=== PATIENT | female | born 1975 | race Caucasian/White ===

== ENCOUNTER 2018-10-23 23:30 | Emergency (ER) | payer SELFPAY, OTHER ==
[2018-10-24] MEDS: ACETAMINOPHEN 325 MG TAB PO (02:03)
== END 2018-10-24 03:10 | disposition home or self-care (01) ==
LOC: FTE 23:30
DX: S00.01XA Abrasion of scalp, initial encounter (principal); W01.198A Fall on same level from slipping, tripping and stumbling with subsequent striking against other object, initial encounter; Y92.9 Unspecified place or not applicable
CPT/HCPCS: 99283